=== PATIENT | female | born 1935 | race African-American/Black ===

== ENCOUNTER 2016-10-24 12:15 | Inpatient (IN) | payer MEDICARE, MEDICAID ==
[2016-10-24 12:52] LABS: AUTOMATED BASOPHIL 0.3 % (0-2); AUTOMATED EOSINOPHIL 1.2 % (0-5); AUTOMATED LYMPH 34.3 % (17-44); AUTOMATED MONOCYTE 7.7 % (3-10); AUTOMATED NEUTROPHIL 56.5 % (45-76); MPV 7.9 fL (7.4-10.4)
[2016-10-24 13:02] LABS: PARTIAL THROMB. TIME 24.4 SEC (22-35)
[2016-10-24 13:18] LABS: BLOOD UREA NITROGEN 12 MG/DL (7-17); CALC CORRECTED 9.9 MG/DL (8.4-10.2); CALCIUM 9.7 MG/DL (8.4-10.2); CALCULATED OSMOLALITY 269 MOs/Kg (270-290); CHLORIDE 105 mEq/L (98-107); GLUCOSE 104 MG/DL (70-99); SODIUM LEVEL 140 mEq/L (137-146); TOTAL PROTEIN 7.3 G/DL (6.3-8.2)
--- NOTE | 2016-10-24 14:33 | EDPRACDOC ---
- General Information Chief Complaint: Chest Pain Stated Complaint: CP SINCE FRIDAY OFF & ON USING NITRO HX DC Time Seen by Provider: 10/24/16 14:25 Mode of Arrival: Car Home Medications: Home Medications Albuterol Sulfate [Proair Hfa] 2 puff INH Q6H PRN 07/06/15 Aspirin (Enteric Coated) [Ecotrin] 81 mg PO BID 07/06/15 Atorvastatin Calcium [Lipitor] 80 mg PO QHS 07/06/15 Cholecalciferol (Vitamin D3) [Vitamin D-3] 2,000 unit PO DAILY 07/06/15 Esomeprazole Mag Trihydrate [Nexium] 40 mg PO QAM 07/06/15 Nitroglycerin [Nitrostat] 0.4 mg SL .Q5M X 3 PRN 07/06/15 Lisinopril [Prinivil] 10 mg PO DAILY 05/24/16 Meclizine HCl [Antivert] 25 mg PO Q6 #40 tab 05/24/16 Metoprolol Tartrate [Lopressor] 25 mg PO DAILY #30 tablet 05/24/16 Allergies/Adverse Reactions: Allergies Allergy/AdvReac Type Severity Reaction Status Date / Time No Known Allergies Allergy Verified 05/24/16 12:21 - History of Present Illness Onset: FRIDAY HPI: PT COMPLAINS OF INTERMITTENT PAIN IN RIGHT SIDE OF HER CHEST OFF/ON X 4 DAYS, STATES SHE HAS BEEN TAKING NTG THAT HAS BEEN HELPING SOME, BUT HAS NOT HELPED TODAY, PT DESCRIBES THE PAIN "THROBBING" AND RADIATES TO HER NECK, STATES SHE FEELS "SWEATY" WITH THE PAIN. PT DENIES FEVER OR CHILLS, NO N/V/D, STATES HAD A "COUGH" LAST WEEK BUT THAT IS BETTER NOW. Chest Pain Location: Reports: Right Chest Pain Radiation: Reports: Neck Symptoms Occur: Reports: Suddenly, At Rest Cardiac Risk Factors: Reports: Hyperlipidemia, Hypertension Cardiac History of: Reports: Similar Pain in Past, DC, Stent PE Risk Factors: Reports: None Medications within 24 Hours: Reports: None Prehospital Care: Reports: None Pain Came On: Reports: Suddenly Pain Status: Present Now Pain Description: Reports: Other (THROBBING) Pain Severity: Severe Pain Worsens With: Reports: Nothing Pain Improves With: Reports: Nitroglycerin Associated Signs and Symptoms: Reports: SOB, Diaphoretic. Denies: Palpitations , Abdominal Pain, Nausea, Vomiting, Calf Pain or Swelling, Chest Rash ED Past Medical History - History Reviewed Yes Nurses notes reviewed and agree except as marked - Patient Medical History Neurological History: Reports: Cerebrovascular Accident Cardiac History: Reports: Hypertension, Heart Attack, Hypercholesterolemia Psychological History: Denies: Depression Systemic History: Denies: Cancer - Social Medical History Smoking Status: Former smoker (QUIT 2 WEEKS AGO) ETOH: None Substance Abuse: None EDM Review of Systems - Review of Systems Constitutional: negative: Chills, Fever Eyes: negative: Blurred Vision, Double Vision Ears: negative: Drainage Throat: negative: Pain Nose: negative: Congestion, Discharge Respiratory: Shortness of Breath. negative: Cough, Wheezing Cardiovascular: Chest Pain. negative: Palpitations Gastrointestinal: negative: Diarrhea, Nausea, Pain, Vomiting Genitourinary: negative: Dysuria, Frequency Neurological: negative: Dizziness, Headache, Numbness, Weakness Musculoskeletal: No Symptoms Reported Integumentary: No Symptoms Reported - Physical Exam Constitutional: Alert (Awake), No apparent distress Oriented to: Time, Person, Place Last recorded Vital Signs: Last Vital Signs Temp 97.9 F 10/24/16 12:24 Pulse 63 10/24/16 14:24 Resp 18 10/24/16 14:24 BP 139/69 10/24/16 14:24 Pulse Ox 98 10/24/16 14:24 Oxygen Pulse Oxygen Saturation 98 O2 Device Room Air Oxygen Flow Rate Fraction of Inspired Oxygen ( FIO2) - HEENT Head: Normal ( normocephalic) Eye Exam: Normal (PERRL, EOMI, Sclera white) Oropharynx: Normal (Pharynx:Moist without exudate,Gums-no swelling) Tympanic Membrane: Normal ENT EAC: Normal TMJ: Normal Nose: No Symptoms Reported (septum midline) Neck: Normal (FROM, trachea at midline) - Respiratory/Cardiovascular Respiratory: Normal - CTA (BBS clear to auscultation without adventitious sounds ) Cardiovascular: Normal (RRR without murmur, gallop or rub) - GI Auscultation: Normal (NABS) Palpation: Normal (Soft,No rebound or guarding, non distended) Tenderness: Non tender Spencer's Sign: Negative - Musculoskeletal Back: Normal (Non-Tender) Extremities: Normal (Normal tone, Pulses 2+ No cyanosis or edema, FROM) - Integumentary Skin: Normal, Warm, Dry Lymphatics: Normal (no adenopathy) - Neurologic Memory Impaired: Normal Motor Function: Normal (Normal tone, Pulses 2+ No cyanosis or edema, FROM) Cranial Nerve: Normal (CN II-X11 intact sensation, strength 5/5) Cerebellar: Normal Mood Description: Normal Perception: Normal ED Chest Pain Exam - Respiratory/Cardiovascular Respiratory: Normal - CTA Cardiovascular/Chest: Normal Radial Pulse: Normal Carotid Arteries: Normal Edema: negative: 1+, 2+, 3+, 4+, 5, 6 Chest Palpation: Tender, Reproduces Pain - Differential Diagnosis Angina, Chest wall pain, Cholelithiasis, CHF, Costochondritis, Gastritis, Myocardial infarction, Pericarditis, Pancreatitis, Pneumonia - Action Patient received Aspirin within last 24 hours?: No ASA given in the ED: Yes Patient received Beta Donell within last 24hrs: Yes - Re-evaluation Re-evaluation 1 Re-evaluation Time: 15:06 (STATES PAIN "A LITTLE BETTER") - Results 10/24/16 12:32 10/24/16 12:32 WBC 6.2 xk/uL (3.8-10.8) 10/24/16 12:32 RBC 5.19 xM/uL (4.20-5.40) 10/24/16 12:32 Hgb 12.7 g/dL (12.0-16.0) 10/24/16 12:32 Hct 40.6 % (36-47) 10/24/16 12:32 MCV 78 fL (81-99) L 10/24/16 12:32 MCH 24.6 pg (27-32) L 10/24/16 12:32 MCHC 31.4 g/dl (33-36) L 10/24/16 12:32 RDW 18.0 % (11.5-14.5) H 10/24/16 12:32 Plt Count 203 xk/uL (130-400) 10/24/16 12:32 MPV 7.9 fL (7.4-10.4) 10/24/16 12:32 Neut % (Auto) 56.5 % (45-76) 10/24/16 12:32 Lymph % (Auto) 34.3 % (17-44) 10/24/16 12:32 [place] % (Auto) 7.7 % (3-10) 10/24/16 12:32 Eos % (Auto) 1.2 % (0-5) 10/24/16 12:32 Baso % (Auto) 0.3 % (0-2) 10/24/16 12:32 Absolute Neuts (auto) 3.47 xk/uL (1.7-8.2) 10/24/16 12:32 Absolute Lymphs (auto) 2.11 xk/uL (0.65-4.75) 10/24/16 12:32 PT 10.7 SEC (9.2-11.2) 10/24/16 12:32 INR 1.0 10/24/16 12:32 APTT 24.4 SEC (22-35) 10/24/16 12:32 Sodium 140 mEq/L (137-146) 10/24/16 12:32 Potassium 3.7 mEq/L (3.5-5.1) 10/24/16 12:32 Chloride 105 mEq/L (98-107) 10/24/16 12:32 Carbon Dioxide 26 mMOL/L (22-33) 10/24/16 12:32 Anion Gap 13 mEq/L (8-16) 10/24/16 12:32 BUN 12 MG/DL (7-17) 10/24/16 12:32 Creatinine 0.70 MG/DL (0.52-1.04) 10/24/16 12:32 Estimated GFR (MDRD) > 60 mL/min (>=60) 10/24/16 12:32 Glucose 104 MG/DL (70-99) H 10/24/16 12:32 Calculated Osmolality 269 MOs/Kg (270-290) L 10/24/16 12:32 Calcium 9.7 MG/DL (8.4-10.2) 10/24/16 12:32 Corrected Calcium 9.9 MG/DL (8.4-10.2) 10/24/16 12:32 Total Bilirubin 0.6 MG/DL (0.2-1.3) 10/24/16 12:32 AST 45 IU/L (14-36) H 10/24/16 12:32 ALT 37 IU/L (9-52) 10/24/16 12:32 Alkaline Phosphatase 72 IU/L (55-165) 10/24/16 12:32 Troponin I 0.23 ng/mL (<.04) 10/24/16 12:32 Giq-K-Zjrvxidpggh Pept 619 pg/mL (0-1800) 10/24/16 12:32 Total Protein 7.3 G/DL (6.3-8.2) 10/24/16 12:32 Albumin 3.8 G/DL (3.5-5.0) 10/24/16 12:32 Lab Results 10/24/16 10/24/16 10/24/16 12:32 12:32 12:32 WBC 6.2 RBC 5.19 Hgb 12.7 Hct 40.6 MCV 78 L MCH 24.6 L MCHC 31.4 L RDW 18.0 H Plt Count 203 MPV 7.9 Neut % (Auto) 56.5 Lymph % (Auto) 34.3 [place] % (Auto) 7.7 Eos % (Auto) 1.2 Baso % (Auto) 0.3 Absolute Neuts (auto) 3.47 Absolute Lymphs (auto) 2.11 PT 10.7 INR 1.0 APTT 24.4 Sodium 140 Potassium 3.7 Chloride 105 Carbon Dioxide 26 Anion Gap 13 BUN 12 Creatinine 0.70 Estimated GFR (MDRD) > 60 Glucose 104 H Calculated Osmolality 269 L Calcium 9.7 Corrected Calcium 9.9 Total Bilirubin 0.6 AST 45 H ALT 37 Alkaline Phosphatase 72 Troponin I 0.23 Lwl-S-Trtyjlztovv Pept 619 Total Protein 7.3 Albumin 3.8 Laboratory Results - last 24 hr 10/24/16 10/24/16 10/24/16 12:32 12:32 12:32 WBC 6.2 RBC 5.19 Hgb 12.7 Hct 40.6 MCV 78 L MCH 24.6 L MCHC 31.4 L RDW 18.0 H Plt Count 203 MPV 7.9 Neut % (Auto) 56.5 Lymph % (Auto) 34.3 [place] % (Auto) 7.7 Eos % (Auto) 1.2 Baso % (Auto) 0.3 Absolute Neuts (auto) 3.47 Absolute Lymphs (auto) 2.11 PT 10.7 INR 1.0 APTT 24.4 Sodium 140 Potassium 3.7 Chloride 105 Carbon Dioxide 26 Anion Gap 13 BUN 12 Creatinine 0.70 Estimated GFR (MDRD) > 60 Glucose 104 H Calculated Osmolality 269 L Calcium 9.7 Corrected Calcium 9.9 Total Bilirubin 0.6 AST 45 H ALT 37 Alkaline Phosphatase 72 Troponin I 0.23 Epi-A-Zobdlrsgrsp Pept 619 Total Protein 7.3 Albumin 3.8 Laboratory Results 10/24/16 12:32 10/24/16 12:32 - EKG EKG #1 EKG Time: 12:28 -: Yes EKG interpreted by me Rate: bpm: 61 [place]: Normal Rhythm: NSR Block: None Hypertrophy: None ST: Nonsp Comparison: 05/24/16 (NO CHANGE) - Diagnostic Imaging CXR Image interpreted by: Radiologist PORTABLE CHEST 1 VIEW COMPARISON: Single view of the chest 05/24/2016. PA and lateral chest 07/06/2015. FINDINGS: The lungs are clear. Heart size is upper normal. No pneumothorax or pleural effusion. No focal bony abnormality. IMPRESSION: No acute disease. - Additional Information DISCUSSED WITH DR HUERTA, WILL DISCUSS WITH HOSPITALIST FOR ADMISSION. - Departure Condition: Stable Final Diagnosis: ACS (acute coronary syndrome) Education/Counseling Given To: Patient Education/Counseling Given Regarding: Diagnosis, Treatment, Prognosis, Follow Up Referrals: Ang Antonio MD [Primary Care Provider] - One Week
[2016-10-24] MEDS ORDERED: METOPROLOL TARTRATE 25 MG TAB PO ONE (14:34)
[2016-10-24] MEDS ORDERED: NITROGLYCERINE 2 % OINTMENT PACK TOP ONE (14:34)
[2016-10-24] MEDS ORDERED: ASPIRIN (CHEWABLE) 81 MG TAB PO ONE (14:34)
--- NOTE | 2016-10-24 14:55 | DIRPT ---
CLINICAL DATA: Intermittent right side chest pain for 4 days. No known injury. Initial encounter. EXAM: PORTABLE CHEST 1 VIEW COMPARISON: Single view of the chest 05/24/2016. PA and lateral chest 07/06/2015. FINDINGS: The lungs are clear. Heart size is upper normal. No pneumothorax or pleural effusion. No focal bony abnormality. IMPRESSION: No acute disease. Electronically Signed By: Hamzah Carr M.D. On: 10/24/2016 14:53
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
[2016-10-24] MEDS ORDERED: LORAZEPAM 1 MG TAB PO PRN (15:52)
[2016-10-24] MEDS ORDERED: ALBUTEROL 6.7 GM MDI INH PRN (15:52)
[2016-10-24] MEDS ORDERED: NITROGLYCERINE 0.4 MG TAB SL PRN ×2 (15:52→15:53)
[2016-10-24] MEDS ORDERED: TEMAZEPAM 15 MG CAP PO PRN (15:52)
[2016-10-24] MEDS ORDERED: SODIUM CHLORIDE 0.9% 3 ML FLUSH FLUSH PRN (15:55)
[2016-10-24] MEDS ORDERED: Pharmacy Order Set Alert SCH ×2 (16:00→20:00)
[2016-10-24] MEDS ORDERED: Nitroglycerin D5W 50,000 MCG/250 ML IVBOT IV SCH (16:00)
[2016-10-24] MEDS ORDERED: MORPHINE 2 MG/ML INJECTION IV ONE (16:11)
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
[2016-10-24] MEDS: ENOXAPARIN 80 MG/0.8 ML PFS SQ SCH (17:59)
[2016-10-24] MEDS: ASPIRIN 325 MG TAB PO SCH (18:26)
[2016-10-24] MEDS: SODIUM CHLORIDE 0.9% 3 ML FLUSH FLUSH SCH (18:28)
[2016-10-24] MEDS ORDERED: Enoxaparin 1 mg per kg per dose SQ SCH (20:00)
[2016-10-24] MEDS ORDERED: Vaccine Screening Complete SCH (20:00)
[2016-10-24] MEDS ORDERED: ATORVASTATIN 80 MG TAB PO SCH (21:00)
[2016-10-24] MEDS: MORPHINE 2 MG/ML INJECTION IV PRN (21:36)
[2016-10-25 03:56] VITALS: BMI 23.4
[2016-10-25] MEDS: ENOXAPARIN 80 MG/0.8 ML PFS SQ SCH (04:05)
[2016-10-25] MEDS: MORPHINE 2 MG/ML INJECTION IV PRN ×2 (04:05→07:54)
[2016-10-25] MEDS: SODIUM CHLORIDE 0.9% 3 ML FLUSH FLUSH SCH (04:45)
[2016-10-25] MEDS ORDERED: PANTOPRAZOLE 40 MG TAB PO SCH (06:00)
[2016-10-25 06:43] LABS: LDL (calc.) 45.8 MG/DL (<100); VLDL (calc.) 12.2 MG/DL (5-40)
[2016-10-25 07:57] VITALS: TEMP 97.7
[2016-10-25] MEDS ORDERED: FLU VACCINE (Afluria) 0.5 ML DOSE IM ONE (08:00)
[2016-10-25] MEDS ORDERED: PNEUMOCOCCAL 0.5 ML VIAL IM ONE (08:00)
[2016-10-25] MEDS ORDERED: METOPROLOL TARTRATE 50 MG TAB PO SCH (09:00)
[2016-10-25] MEDS ORDERED: LISINOPRIL 5 MG TAB PO SCH (09:00)
[2016-10-25] MEDS ORDERED: CETIRIZINE HCL 10 MG TAB PO SCH (09:00)
[2016-10-25] MEDS ORDERED: ALPRAZOLAM 0.25 MG TAB PO ONE (09:30)
[2016-10-25] MEDS: ASPIRIN 325 MG TAB PO SCH (09:50)
[2016-10-25] MEDS ORDERED: NS 1,000 ML IV SCH (10:00)
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
--- NOTE | 2016-10-25 10:55 | PCM.CARD ---
- Subjective Current Assessment: Other (Patient complains of ongoing chest pain and mentions to me that the chest pain is radiating to the arms. She says that this chest pain was similar to the chest pain before the stents in 2011. She is concerned about the symptoms. Her troponin also has chest entered the positive zone.) Vital Signs: Last Vital Signs Temp 97.7 F 10/25/16 07:56 Pulse 56 L 10/25/16 09:30 Resp 20 10/25/16 07:56 BP 122/74 10/25/16 09:30 Pulse Ox 97 10/25/16 07:56 EKG Rhythm: Sinus Rhythm Heart Sounds: S1 & S2 (Heart sounds irregular lungs bilateral air entry and no pedal edema.) - Assessment/Plan (1) ACS (acute coronary syndrome) Acute I24.9 - ACUTE ISCHEMIC HEART DISEASE, UNSPECIFIED Present on Admission: Yes Comment/Plan: Coronary angiography explained to the patient. Procedure, benefits and potential risks explained she vocalized understanding and questions were answered to her satisfaction and she is agreeable. I have made transfer arrangements by [facility]. Further recommendations will be made based on the findings of the coronary angiography. (2) Coronary artery disease Acute I25.10 - ATHSCL HEART DISEASE OF [place] CORONARY ARTERY W/O ANG PCTRS Present on Admission: Yes I25.110 - Atherosclerotic heart disease of [place] coronary artery with unstable angina pectoris Comment/Plan: As mentioned above. Secondary prevention was also stressed to the patient. (3) Hyperlipidemia Acute E78.5 - HYPERLIPIDEMIA, UNSPECIFIED Present on Admission: Yes E78.5 - Hyperlipidemia, unspecified Comment/Plan: Diet was discussed for dyslipidemia statin therapy was discussed. She vocalized understanding. (4) Hypertension Acute I10 - ESSENTIAL (PRIMARY) HYPERTENSION Present on Admission: Yes I10 - Essential (primary) hypertension Comment/Plan: Blood pressure is stable and will be monitored closely through the course of the hospital stay. (5) Tobacco abuse Chronic Z72.0 - TOBACCO USE Present on Admission: Yes Comment/Plan: Smoking cessation was urged.
[2016-10-25 11:49] VITALS: BP 122/75
[2016-10-25] MEDS ORDERED: CHOLECALCIFEROL 1000 UNITS TAB PO SCH (12:00)
[2016-10-25 12:02] VITALS: PULSE 47
--- NOTE | 2016-10-25 17:28 | CAPUEKG ---
[place], [place] Test Date: 2016-10-25 Pat Name: ZBIGNIEW BHAKTA Department: Room: 432 Gender: Female Coordinator Of Health Services: : Requested By: Order Number: Reading MD: Jarek Cedillo MD Measurements Intervals [place] Rate: 65 P: 52 AL: 134 QRS: 13 QRSD: 82 T: -57 QT: 452 QTc: 470 Interpretive Statements Normal sinus rhythm with sinus arrhythmia T wave abnormality, consider inferior ischemia Abnormal ECG Electronically Signed On 10-25-16 17:27:37 EST by Jarek Cedillo MD <[id number]> [id number]
--- NOTE | 2016-10-25 17:28 | CAPUEKG ---
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
[2016-10-26] MEDS ORDERED: FLU VACCINE (Afluria) 0.5 ML DOSE IM ONE (08:00)
[2016-10-26] MEDS ORDERED: PNEUMOCOCCAL 0.5 ML VIAL IM ONE (08:00)
== END 2016-10-25 14:58 | disposition short-term general hospital (02) | DRG 282 ==
LOC: ED 12:15 → PCU 16:10
PROVIDERS: ADMIT Hospitalist; ATTEND Hospitalist
DX: I21.4 Non-ST elevation (NSTEMI) myocardial infarction (principal); I10 Essential (primary) hypertension; E78.5 Hyperlipidemia, unspecified; K21.9 Gastro-esophageal reflux disease without esophagitis; I25.2 Old myocardial infarction; Z98.61 Coronary angioplasty status; Z86.73 Personal history of transient ischemic attack (TIA), and cerebral infarction without residual deficits; Z79.82 Long term (current) use of aspirin; Z79.899 Other long term (current) drug therapy; Z87.891 Personal history of nicotine dependence; I25.110 Atherosclerotic heart disease of native coronary artery with unstable angina pectoris
CPT/HCPCS: 36415; 71010; 80053; 80061; 82550; 83880; 84484; 85025; 85610; 85730; 90656; 90732; 93005; 96372; 99285; 99406; G0237; J1650; J2270; J3490